=== PATIENT | female | born 1995 | race African-American/Black ===

== ENCOUNTER 2017-11-24 14:40 | Emergency (ER) | payer OTHER ==
[2017-11-24 14:52] VITALS: BP 125/71
--- NOTE | 2017-11-24 15:13 | PHYS DOC ---
Adult General Chief Complaint Chief Complaint: ABDOMINAL PAIN IN HPI HPI Patient is a 22 year old at female who presents with abdominal pain nausea and vomiting. She states she is 18 weeks and had no issues during her . She does take multivitamins and has a history of anemia. She states she felt fine until she ate some peaches and then 30 minutes later she vomited. She states she vomited twice denies any blood in her vomit. She then felt very warm. She complains about some epigastric pain and left and right sided upper quadrant abdominal pain. She denies any vaginal bleeding or discharge. She states this is her first . She never been before. She never had any nausea or vomiting with but has thrown up 3 times during the course of this but normally does not have any nausea. Review of Systems Review of Systems Constitutional: Denies fever or chills [] Eyes: Denies change in visual acuity, redness, or eye pain [] HENT: Denies nasal congestion or sore throat [] Respiratory: Denies cough or shortness of breath [] Cardiovascular: No additional information not addressed in HPI [] GI: Positive for abdominal pain, nausea, vomiting, Denies bloody stools or diarrhea [] : Denies dysuria or hematuria [] Musculoskeletal: Denies back pain or joint pain [] Integument: Denies rash or skin lesions [] Neurologic: Denies headache, focal weakness or sensory changes [] Endocrine: Denies polyuria or polydipsia [] All other systems were reviewed and found to be within normal limits, except as documented in this note. Current Medications Current Medications Current Medications Medications (Trade) Dose Ordered Sig/[facility] Start Time Stop Time Status Last Admin Dose Admin Ondansetron HCl (Zofran) 4 mg 1X ONCE 11/24/17 15:15 11/24/17 15:16 UNV Sodium Chloride 1,000 ml @ 1,000 mls/hr Q1H 11/24/17 15:04 11/24/17 16:03 UNV Physical Exam Physical Exam Constitutional: Well developed, well nourished, no acute distress, non-toxic appearance. [] HENT: Normocephalic, atraumatic, bilateral external ears normal, oropharynx moist, no oral exudates, nose normal. [] Eyes: PERRLA, EOMI, conjunctiva normal, no discharge. [] Neck: Normal range of motion, no tenderness, supple, no stridor. [] Cardiovascular:Heart rate regular rhythm, no murmur [] Lungs & Thorax: Bilateral breath sounds clear to auscultation [] Abdomen: Bowel sounds normal, soft, mild tender palpation in the epigastric area , no tenderness over the umbilicus, fundus noted be at a level the umbilicus, no masses, no pulsatile masses. [] Skin: Warm, dry, no erythema, no rash. [] Back: No tenderness, no CVA tenderness. [] Extremities: No tenderness, no cyanosis, no clubbing, ROM intact, no edema. [] Neurologic: Alert and oriented X 3, normal motor function, normal sensory function, no focal deficits noted. [] Psychologic: Affect normal, judgement normal, mood normal. [] EKG EKG [] Radiology/Procedures Radiology/Procedures [address] [address] IMAGING REPORT Signed PATIENT: DESTINY SULTANA ACCOUNT: [id number] : 1995 LOCATION: ER AGE: 22 SEX: F EXAM STATUS: REG ER ORD. PHYSICIAN: MILAD WATKINS MD REASON: abd pain PROCEDURE: PREG MORE THAN OR EQ TO 14 WKS Clinical indications: Abdominal pain and vomiting for 3 hours Findings: A single intrauterine fetus is seen in cephalic position. heart rate is 143 beats per minute. BPD is 4.1 cm which equals 18 weeks 3 days. HC is 15.12 cm which equals 18 weeks 1 day. AC is 11.94 cm which equals 17 weeks 5 days. FL is 2.48 cm which equals 17 weeks 3 days. Average gestational age by ultrasound is 18 weeks 0 days +/- 12 days with an EDC of April 27, 2018. Estimated weight is 0 pounds and 7 ounces. anatomy was not completely evaluated on this study. A four-chamber heart and three-vessel cord are identified. stomach and urinary bladder are identified. kidneys are unremarkable. Cord insertion site is unremarkable. The spine is morphologically normal in appearance. Ventricular trigone measurement is 7 mm. The intracranial structures are not well visualized in this study due to the baby position. Four extremities are identified. The amniotic fluid volume appears normal. Cervical length is 4.5 cm. A grade 0 posterior placenta is seen. No placenta previa and no placenta abruptio is identified. The maternal left ovary is visualized and is normal. The maternal right ovary is not visualized. . Impression: Single IUP in cephalic presentation with gestational age of 18 weeks. DICTATED AND SIGNED BY: YUDITH CHERRY MD DATE: 11/24/17 9620 CC: MILAD WATKINS MD; ARELIS PIERRE ~ Impressions: Abdominal pain and Nausea, vomiting Course & Med Decision Making Course & Med Decision Making Pertinent Labs and Imaging studies reviewed. (See chart for details) OB ultrasound does not show any acute abnormalities. UA is pending at this time. Final disposition to Dr. Morgan. Signout obtained from Dr. See at 6 PM. Plan as outlined by Dr. See is to review patient's urinalysis. If urinalysis unremarkable patient is stable for discharge. Patient's UA is been reviewed by me other than positive ketonuria, the UA is unremarkable. Patient be discharged home as outlined by Dr. See's plan to me during signout. Dragon Disclaimer Dragon Disclaimer This electronic medical record was generated, in whole or in part, using a voice recognition dictation system. Departure Departure: Impression: Primary Impression: Abdominal pain affecting Additional Impression: Gastritis Disposition: 01 HOME, SELF-CARE Condition: STABLE Referrals: ARELIS PIERRE (PCP) Patient Instructions: Abdominal Pain During , Gastritis, Adult Scripts Ondansetron (ZOFRAN ODT) 4 Mg Tab.rapdis 1 TAB SL Q8HRS for NAUSEA, #15 TAB Prov: MANSI SHAW MD 11/24/17 Problem Qualifiers MILAD WATKINS MD Nov 24, 2017 15:13 MANSI SHAW MD Nov 24, 2017 18:42
[2017-11-24 15:42] LABS: BASO % 0 % (0-3); EOS # 0.1 x10^3/uL (0.0-0.7); EOS % 0 % (0-3); HEMATOCRIT 37.5 % (36.0-47.0); HEMOGLOBIN 12.3 g/dL (12.0-15.5); LYMPH # 1.5 x10^3/uL (1.0-4.8); LYMPH % 12 % (24-48); MEAN CORPUSCULAR HEMOGLOBIN 29 pg (25-35); MEAN CORPUSCULAR HGB CONC 33 g/dL (31-37); MEAN CORPUSCULAR VOLUME 88 fL (79-100); MONO # 0.4 x10^3/uL (0.0-1.1); MONO % 3 % (0-9); NEUT # 11.2 x10^3uL (1.8-7.7); NEUT % 85 % (31-73); PLATELET COUNT 281 x10^3/uL (140-400); RED BLOOD COUNT 4.28 x10^6/uL (3.50-5.40); RED CELL DISTRIBUTION WIDTH 12.8 % (11.5-14.5); WHITE BLOOD COUNT 13.2 x10^3/uL (4.0-11.0)
[2017-11-24] MEDS ORDERED: ONDANSETRON PF 4 MG/2 ML VIAL. IV ONE (16:30)
[2017-11-24] MEDS ORDERED: IV NORMAL SALINE 1,000ML 1,000 ML IV SCH (16:30)
--- NOTE | 2017-11-24 16:58 | RAD ---
Clinical indications: Abdominal pain and vomiting for 3 hours Findings: A single intrauterine fetus is seen in cephalic position. heart rate is 143 beats per minute. BPD is 4.1 cm which equals 18 weeks 3 days. HC is 15.12 cm which equals 18 weeks 1 day. AC is 11.94 cm which equals 17 weeks 5 days. FL is 2.48 cm which equals 17 weeks 3 days. Average gestational age by ultrasound is 18 weeks 0 days +/- 12 days with an EDC of April 27, 2018. Estimated weight is 0 pounds and 7 ounces. anatomy was not completely evaluated on this study. A four-chamber heart and three-vessel cord are identified. stomach and urinary bladder are identified. kidneys are unremarkable. Cord insertion site is unremarkable. The spine is morphologically normal in appearance. Ventricular trigone measurement is 7 mm. The intracranial structures are not well visualized in this study due to the baby position. Four extremities are identified. The amniotic fluid volume appears normal. Cervical length is 4.5 cm. A grade 0 posterior placenta is seen. No placenta previa and no placenta abruptio is identified. The maternal left ovary is visualized and is normal. The maternal right ovary is not visualized. . Impression: Single IUP in cephalic presentation with gestational age of 18 weeks.
[2017-11-24 17:09] LABS: PLT ESTIMATE ADEQUATE (ADEQUATE)
[2017-11-24 17:12] LABS: ALBUMIN 2.6 g/dL (3.4-5.0); CALCIUM 8.4 mg/dL (8.5-10.1); CREATININE 0.4 mg/dL (0.6-1.0); DIRECT BILIRUBIN 0.1 mg/dL (0.0-0.2); GFR 239.3; POTASSIUM 4.2 mmol/L (3.5-5.1); TOTAL BILIRUBIN 0.4 mg/dL (0.2-1.0); TOTAL PROTEIN 6.3 g/dL (6.4-8.2)
[2017-11-24 17:26] LABS: TEAR DROP CELLS PRESENT
[2017-11-24 17:29] LABS: BURR CELLS OCC
[2017-11-24 17:30] LABS: POLYCHROMASIA PRESENT
[2017-11-24 18:35] LABS: BACTERIA,URINE 0 /HPF (0-FEW); BILIRUBIN,URINE NEG (NEG); CLARITY,URINE CLOUDY; COLOR,URINE YELLOW; GLUCOSE,URINE NEG (NEG); NITRITE,URINE NEG (NEG); SQUAMOUS EPITHELIAL CELL,UR MOD /LPF; UROBILINOGEN,URINE 0.2 mg/dL (0.2 mg/dL)
[2017-11-24] MEDS ORDERED: ONDA4TAB10 SL (18:42)
== END 2017-11-24 18:53 | disposition home or self-care (01) ==
LOC: ER 14:40
DX: O99.612 Diseases of the digestive system complicating pregnancy, second trimester (principal); K29.70 Gastritis, unspecified, without bleeding; O99.012 Anemia complicating pregnancy, second trimester; Z3A.18 18 weeks gestation of pregnancy
CPT/HCPCS: 36415; 76805; 80048; 80076; 81001; 82550; 83690; 85025; 87086; 96361; 96374; 99285; J2405; J7030

== ENCOUNTER 2018-03-30 15:45 | Emergency (ER) | payer OTHER ==
[~2018-03-30] VITALS: Ht 162.6 cm; Wt 84.4 kg
[~2018-03-30 15:45] MED LIST: ONDA4TAB10 SL
[2018-03-30 15:55] VITALS: BP 118/69
[2018-03-30] MEDS ORDERED: ACETAMINOPHEN 500 MG TABLET PO ONE (16:15)
--- NOTE | 2018-03-30 16:30 | PHYS DOC ---
Past History Past Medical History: No Pertinent History, Anemia Past Surgical History: Other Alcohol Use: None Drug Use: None Adult General Chief Complaint Chief Complaint: HEADACHE HPI HPI Patient is a G1A0L0 22-year-old female that presents to the emergency department complaining of left arm pain. Patient states that her symptoms began this morning. She rates the pain as 3/10 in severity and says that pushing on her inner elbow and inner wrist make the pain worse. She denies anything that improves the pain. Review of Systems Review of Systems Constitutional: Denies fever or chills [] Eyes: Denies change in visual acuity, redness, or eye pain [] HENT: Denies nasal congestion or sore throat [] Respiratory: Denies cough or shortness of breath [] Cardiovascular: Denies chest pain and palpitations[] GI: Denies abdominal pain, nausea, vomiting, bloody stools or diarrhea [] : Denies dysuria or hematuria [] Musculoskeletal: Endorses left wrist and elbow tenderness. Complains of chronic lower leg swelling.[] Integument: Denies rash or skin lesions [] Neurologic: Endorses headache. Denies focal weakness or sensory changes [] Complete systems were reviewed and found to be within normal limits, except as documented in this note. Current Medications Current Medications Current Medications Medications (Trade) Dose Ordered Sig/[facility] Start Time Stop Time Status Last Admin Dose Admin Acetaminophen (Tylenol) 500 mg 1X ONCE 03/30/18 16:15 03/30/18 16:16 DC 03/30/18 16:19 500 MG Allergies Allergies Allergies Coded Allergies Type Severity Reaction Last Updated Verified No Known Drug Allergies 11/24/17 No Physical Exam Physical Exam Constitutional: Well developed, well nourished, no acute distress, non-toxic appearance. [] HENT: Normocephalic, atraumatic, bilateral external ears normal, oropharynx moist, no oral exudates, nose normal. [] Eyes: PERRL, EOMI [] Neck: Normal range of motion, no tenderness, supple, no stridor. [] Cardiovascular:Heart rate regular rhythm, no murmur [] Lungs & Thorax: Bilateral breath sounds clear to auscultation [] Abdomen: Bowel sounds normal, soft, no tenderness, no masses, no pulsatile masses. [] Skin: Warm, dry, no erythema, no rash. [] Back: No tenderness, no CVA tenderness. [] Extremities: Tenderness to palpation of the left medial epicondyle and medial surface of the left wrist. No cyanosis, no clubbing, ROM intact, no edema. Negative Tinel's sign and Phalen's test. Mild bilateral lower extremity swelling [] Neurologic: Alert and oriented X 3, normal motor function, normal sensory function, no focal deficits noted. [ Current Patient Data Vital Signs Vital Signs Date Time Temp Pulse Resp B/P (MAP) Pulse Ox O2 Delivery O2 Flow Rate FiO2 03/30/18 15:55 98.4 90 18 98 Room Air EKG EKG [] Radiology/Procedures Radiology/Procedures [] Course & Med Decision Making Course & Med Decision Making Pertinent Labs and Imaging studies reviewed. (See chart for details) Patient is a G1A0L0 22-year-old female that presents to the emergency department complaining of left arm pain. Upon physical examination, Tinel's sign and Phalen's test for median nerve entrapment symptomatology was negative. She had mild tenderness on the medial epicondyle of her left forearm was palpated. Physical findings lead to the likely diagnosis of tendinitis. A one- time steroid was given while in the ED. Splint applied to left wrist and Tylenol prescribed. Patient stable for discharge with outpatient follow-up with PCP or [employer]. Discussed findings and plan with patient who acknowledges understanding and agreement. [] Dragon Disclaimer Dragon Disclaimer This electronic medical record was generated, in whole or in part, using a voice recognition dictation system. Departure Departure: Impression: Primary Impression: Acute wrist pain Additional Impressions: Headache Third trimester Disposition: 01 HOME, SELF-CARE Condition: STABLE Referrals: JOSIE ABREU MD (PCP) Patient Instructions: Headache, FAQs, - Third Trimester, [id number] , Wrist Pain, [id number] Additional Instructions: Use over the counter Tylenol for pain as needed. Problem Qualifiers Primary Impression: Acute wrist pain Laterality: left Qualified Codes: M25.532 - Pain in left wrist Additional Impressions: Headache Headache type: unspecified Headache chronicity pattern: acute headache Intractability: intractable Qualified Codes: R51 - Headache AIDA RICHMOND DO Mar 30, 2018 16:30
== END 2018-03-30 16:35 | disposition home or self-care (01) ==
LOC: ER 15:45
DX: O26.893 Other specified pregnancy related conditions, third trimester (principal); M25.532 Pain in left wrist; M25.522 Pain in left elbow; R51 Headache; O99.013 Anemia complicating pregnancy, third trimester; Z3A.00 Weeks of gestation of pregnancy not specified
CPT/HCPCS: 29125; 99283

== ENCOUNTER 2019-09-03 03:59 | Emergency (ER) | payer OTHER ==
[~2019-09-03] VITALS: Ht 162.6 cm; Wt 63.0 kg
[2019-09-03] MEDS ORDERED: ONDANSETRON PF 4 MG/2 ML VIAL. ONE (04:08)
[2019-09-03] MEDS ORDERED: MORPHINE SULFATE 10 MG/ML SYRINGE. ONE (04:26)
[2019-09-03] MEDS ORDERED: IV NORMAL SALINE 1,000ML 1,000 ML IV ONE (04:30)
[2019-09-03] MEDS ORDERED: MORPHINE SULFATE 4 MG/ML DISP.SYRIN. IV ONE (04:30)
[2019-09-03] MEDS ORDERED: ONDANSETRON PF 4 MG/2 ML VIAL. IV ONE (04:45)
--- NOTE | 2019-09-03 05:13 | PHYS DOC ---
Past History Past Medical History: No Pertinent History, Anemia (FRANCISCO RECIO MD) Past Surgical History: Other Additional Past Surgical Histo: DOUBLE BUNIONECTOMY (FRANCISCO RECIO MD) Alcohol Use: None Drug Use: None (FRANCISCO RECIO MD) Adult General Chief Complaint Chief Complaint: ABDOMINAL PAIN HPI HPI Patient is a 24-year-old female with right-sided abdomen pain onset 3 hours ago getting worse vomiting patient is writhing around in pain bending over in pain history limited by the severity of pain. (FRANCISCO RECIO MD) Review of Systems Review of Systems Limited by severity of pain (FRANCISCO RECIO MD) Current Medications Current Medications Current Medications Medications (Trade) Dose Ordered Sig/[facility] Start Time Stop Time Status Last Admin Dose Admin Morphine Sulfate (Morphine 10mg Syringe) 10 mg STK-MED ONCE 09/03/19 04:26 09/03/19 04:26 DC Morphine Sulfate (Morphine 4mg Syringe) 6 mg 1X ONCE 09/03/19 04:30 09/03/19 04:32 DC 09/03/19 04:29 6 MG Ondansetron HCl (Zofran) 4 mg 1X ONCE 09/03/19 04:45 09/03/19 04:46 DC 09/03/19 04:33 4 MG Sodium Chloride 1,000 ml @ 1,000 mls/hr 1X ONCE 09/03/19 04:30 09/03/19 05:29 09/03/19 04:30 1,000 MLS/HR (FRANCISCO RECIO MD) Allergies Allergies Allergies Coded Allergies Type Severity Reaction Last Updated Verified No Known Drug Allergies 11/24/17 No (FRANCISCO RECIO MD) Physical Exam Physical Exam Constitutional: Well developed, well nourished, moderate to severe distress bending over the bed HENT: Normocephalic, atraumatic, bilateral external ears normal, oropharynx moist, no oral exudates, nose normal. [] Eyes: PERRLA, EOMI, conjunctiva normal, no discharge. [] Neck: Normal range of motion, no tenderness, supple, no stridor. [] Cardiovascular:Heart rate regular rhythm, no murmur [] Lungs & Thorax: Bilateral breath sounds clear to auscultation [] Abdomen: Bowel sounds normal, soft, right upper quadrant tenderness, no masses, no pulsatile masses. [] Skin: Warm, dry, no erythema, no rash. [] Back: No tenderness, no CVA tenderness. [] Extremities: No tenderness, no cyanosis, no clubbing, ROM intact, no edema. [] Neurologic: Alert and oriented X 3, normal motor function, normal sensory function, no focal deficits noted. [] (FRANCISCO RECIO MD) Current Patient Data Vital Signs Vital Signs Date Time Temp Pulse Resp B/P (MAP) Pulse Ox O2 Delivery O2 Flow Rate FiO2 09/03/19 04:29 18 97 Room Air 09/03/19 04:01 97.9 105 Lab Results Laboratory Tests Test 09/03/19 04:53 POC Urine HCG, Qualitative hcg negative (Negative) (FRANCISCO RECIO MD) EKG EKG [] (FRANCISCO RECIO MD) Radiology/Procedures Radiology/Procedures [] (FRANCISCO RECIO MD) Impressions: Abdominal ultrasound Limited: Reason for examination: Right upper quadrant pain. Evaluate for cholecystitis. No abnormality seen at the pancreas. The inferior vena cava is normal in appearance. The liver is homogeneous and normal in size measuring 15.2 cm in greatest dimension with no focal lesions. Gallbladder shows no cholelithiasis, sludge or wall thickening. Common bile duct is normal in caliber at 3.2 mm. Right kidney measures 9.5 x 4.2 x 4.3 cm in greatest dimension and shows normal cortical medullary differentiation with no mass or hydronephrosis. IMPRESSION: No cholelithiasis or cholecystitis. No abnormality seen in the right upper quadrant. Electronically signed by: Daphne Valentine MD (09/03/2019 6:47 AM) [facility] [place] DICTATED AND SIGNED BY: DAPHNE VALENTINE MD DATE: 09/03/19 0647 CC: DAYSI PATHAK DO; FRANCISCO RECIO MD; PCP,UNKNOWN ~ (DAYSI PATHAK DO) Course & Med Decision Making Course & Med Decision Making Pertinent Labs and Imaging studies reviewed. (See chart for details) []24-year-old female presenting with upper abdominal discomfort fairly severe pain initially improved somewhat with morphine plan for right upper quadrant ultrasound basic lab work treat symptoms and go from there no right lower quadrant tenderness at all. s/o светлана pending ultrasound, and re-eval (FRANCISCO RECIO MD) Course & Med Decision Making The patient's right upper quadrant ultrasound is negative for gallstones or other significant findings. Her pain still could be related to her gallbladder if it has decreased function. She would need a HIDA scan for further evaluation of this. This can be done as an outpatient. The patient is feeling much better at this time. She is stable for discharge. (DAYSI PATHAK DO) Dragon Disclaimer Dragon Disclaimer This electronic medical record was generated, in whole or in part, using a voice recognition dictation system. (FRANCISCO RECIO MD) Departure Departure: Impression: Primary Impression: Abdominal pain Disposition: HOME, SELF-CARE Condition: IMPROVED Referrals: JOSIE ABREU MD (PCP) Patient Instructions: Abdominal Pain, Women Scripts Ondansetron (ONDANSETRON ODT) 4 Mg Tab.rapdis 1 TAB PO PRN Q6-8HRS PRN for VOMITING, #16 TAB Prov: DAYSI PATHAK DO 09/03/19 Problem Qualifiers Primary Impression: Abdominal pain Abdominal location: right upper quadrant Qualified Codes: R10.11 - Right upper quadrant pain FRANCISCO RECIO MD Sep 03, 2019 05:13 DAYSI PATHAK DO Sep 03, 2019 06:52
[2019-09-03 05:15] LABS: BASO % 0 % (0-3); EOS # 0.1 x10^3/uL (0.0-0.7); EOS % 0 % (0-3); HEMATOCRIT 38.8 % (36.0-47.0); HEMOGLOBIN 12.2 g/dL (12.0-15.5); LYMPH # 1.4 x10^3/uL (1.0-4.8); LYMPH % 11 % (24-48); MEAN CORPUSCULAR HEMOGLOBIN 27 pg (25-35); MEAN CORPUSCULAR HGB CONC 31 g/dL (31-37); MEAN CORPUSCULAR VOLUME 86 fL (79-100); MONO # 0.3 x10^3/uL (0.0-1.1); MONO % 3 % (0-9); NEUT # 10.8 x10^3uL (1.8-7.7); NEUT % 86 % (31-73); PLATELET COUNT 289 x10^3/uL (140-400); RED BLOOD COUNT 4.52 x10^6/uL (3.50-5.40); RED CELL DISTRIBUTION WIDTH 12.8 % (11.5-14.5); WHITE BLOOD COUNT 12.6 x10^3/uL (4.0-11.0)
[2019-09-03 05:19] LABS: BACTERIA,URINE 0 /HPF (0-FEW); BILIRUBIN,URINE NEG (NEG); CLARITY,URINE CLEAR; COLOR,URINE YELLOW; GLUCOSE,URINE NEG (NEG); NITRITE,URINE NEG (NEG); RBC,URINE 0 /HPF (0-2); SQUAMOUS EPITHELIAL CELL,UR MOD /LPF; UROBILINOGEN,URINE 0.2 mg/dL (0.2 mg/dL); WBC,URINE OCC /HPF (0-4)
[2019-09-03 05:21] LABS: CALCIUM 8.1 mg/dL (8.5-10.1); CREATININE 0.7 mg/dL (0.6-1.0); GFR 123.4; POTASSIUM 3.2 mmol/L (3.5-5.1)
[2019-09-03 05:27] LABS: ALBUMIN 3.1 g/dL (3.4-5.0); TOTAL BILIRUBIN 0.8 mg/dL (0.2-1.0); TOTAL PROTEIN 6.2 g/dL (6.4-8.2)
[2019-09-03] MEDS ORDERED: POTASSIUM CHLORIDE 20 MEQ TABLET.ER. PO ONE (06:00)
--- NOTE | 2019-09-03 06:49 | RAD ---
Abdominal ultrasound Limited: Reason for examination: Right upper quadrant pain. Evaluate for cholecystitis. No abnormality seen at the pancreas. The inferior vena cava is normal in appearance. The liver is homogeneous and normal in size measuring 15.2 cm in greatest dimension with no focal lesions. Gallbladder shows no cholelithiasis, sludge or wall thickening. Common bile duct is normal in caliber at 3.2 mm. Right kidney measures 9.5 x 4.2 x 4.3 cm in greatest dimension and shows normal cortical medullary differentiation with no mass or hydronephrosis. IMPRESSION: No cholelithiasis or cholecystitis. No abnormality seen in the right upper quadrant. Electronically signed by: Daphne Garcia MD (09/03/2019 6:47 AM) [facility]
[2019-09-03 06:53] VITALS: BP 98/66
[2019-09-03] MEDS ORDERED: ONDA4TAB12 PO (07:28)
== END 2019-09-03 07:30 | disposition home or self-care (01) ==
LOC: ER 03:59
DX: R10.11 Right upper quadrant pain (principal); R11.10 Vomiting, unspecified; Z86.2 Personal history of diseases of the blood and blood-forming organs and certain disorders involving the immune mechanism
CPT/HCPCS: 36415; 76705; 80053; 81001; 81025; 83690; 84702; 85025; 96361; 96374; 96375; 99285; J2270; J2405; J7030